=== PATIENT | female | born 1970 | race Caucasian/White ===

== ENCOUNTER 2016-06-30 21:11 | Emergency (ER) | payer OTHER ==
[~2016-06-30] VITALS: Ht 167.6 cm; Wt 127.0 kg
[~2016-06-30 21:11] MED LIST: AUGMENTIN 875-1 EACH PO; BENTYL20 M1 PO; DILAUDID2 M1 PO; GUAIFENESIN-COD10 ML PO; LEVAQUIN500 MG PO; LEVSIN0.125 M1 SL; METFORMIN HCL850 M1 PO; METOPROLOL SUCC50 M2 PO; NORCO 5-325 TA1 EACH PO; PERCOCET 5-3251 EACH PO; PREDNISONE10 M2 PO; PROAIR HFA8.5 GM INH; PROMETHAZINE D473 ML PO; ROBITUSSIN W/CO10 ML PO; TESSALON PERLE100 M1 PO; VICODIN 5-3001 EACH PO; ZOFRAN ODT4 M1 SL; ZOFRAN4 M2 PO
[2016-06-30 21:22] VITALS: BP 188/100
--- NOTE | 2016-06-30 22:08 | ED GI/GU/ABDOMINAL COMPLAINT ---
History of Present Illness General Chief Complaint: General Adult Stated Complaint: PT SAYS SHE HAS DIVERTICULITIS LOTS OF PAIN Source: patient, family, old records Exam Limitations: no limitations Vital Signs & Intake/Output Vital Signs & Intake/Output Vital Signs Date Time Temp Pulse Resp B/P Pulse O2 O2 Flow FiO2 Ox Delivery Rate 07/01 0045 97.6 06/302 100.8 66 18 188/100 98 Room Air ED Intake and Output 07/01 0000 06/30 1200 Intake Total 1000 Output Total Balance 1000 Intake, IV 1000 Patient 280 lb Weight Allergies Coded Allergies: NO KNOWN ALLERGIES (11/29/15) Triage Note: PT STATES THAT SHE HAS HISTORY OF DIVERTICULITIS AND HAD A CT SCAN TODAY AT [facility], PT STATES THAT SHE SAW DR NAVA 06/23 ABOUT POSSIBLE SURGERY , PT HAS HAD CONSTANT PAIN LLQ FOR THE PAST 2 DAYS BUT PRIOR TO THAT IT WAS INTERMITTANT, DENIES N/V/D. Triage Nurses Notes Reviewed? yes ? n Is pt currently ? No Onset: Abrupt Duration: day(s): (2), constant, changing over time Timing: recent history Quality/Severity: cramping, fullness, moderate Severity Numbers: 8 Location: left lower quadrant Radiation: no radiation Activities at Onset: none Prior Abdominal Problems: similar symptoms (diverticulitis) No Modifying Factors: none Associated Symptoms: denies HPI: 45-year-old female status post hysterectomy presents to emergency room with recurrent bouts of diverticulitis for which she is being seen by a surgeon Dr. dewey presents emergency room for evaluation today after she has had persistent left lower quadrant abdominal pain for the past 2 days. She had an outpatient CAT scan performed today however does not know the results. She denies any fevers or chills however is noted to be febrile in triage. No nausea vomiting diarrhea no urinary symptoms no hematuria no back pain. The pain is nonradiating she states this feels similar to her diverticulitis. The patient states that she was and has been constipated recently and only had a small bowel movement this morning. She denies any change in her appetite no chest pain. (CASSY CURRIE,LESLYE) Reconcile Medications Hydromorphone HCl (Dilaudid) 2 MG TABLET 1 TAB PO 4XDP PRN PAIN Metformin HCl 850 MG TABLET 1 TAB PO BID DM (Reported) Metoprolol Succinate 50 MG TAB.ER.24H 1 TAB PO DAILY HTN (Reported) Ondansetron (Zofran Odt) 4 MG TAB.RAPDIS 1 TAB SL TID PRN NAUSEA Oxycodone HCl/Acetaminophen (Percocet 5-325 MG Tablet) 5 MG-325 MG TABLET 1 TAB PO BID PRN pain (AYLA QUINTANA,BREANA) Past History Travel History Traveled to [place] past 21 day No Medical History Any Pertinent Medical History? 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 No (LESLYE RIGGS) Review of Systems Review of Systems Constitutional: Reports: see HPI. All Other Systems: Reviewed and Negative Comments Review of systems: See HPI, All other systems negative. Constitutional, no chills no fever, no malaise HEENT: No visual changes no sore throat no congestion Cardiovascular: No chest pain , no palpitation Skin, no rashes, no change in skin Respiratory: No dyspnea no cough no sputum no hemoptysis GI: No nausea no vomiting, no diarrhea, no bloating/constipation : No dysuria No hematuria, no frequency, no discharge Muscle skeletal: No joint pain, no joint swelling, no back pain, no neck pain, Neurologic: No numbness no headache Psych: No stress Heme/endocrine: No bruising no bleeding Immunology: No lymphadenopathy (LESLYE RIGGS) Physical Exam Physical Exam General Appearance: well developed/nourished, alert, awake Gastrointestinal: normal bowel sounds, soft, non-tender Comments: Well-developed well-nourished person in no acute distress HEENT: Normal EENT exam; PERRL, EOMI, HEAD is atraumatic. moist mucous membranes. Neck: Supple, normal range of motion Back: Nontender, no CVA tenderness. Full range of motion Cardiovascular: Regular rate and rhythms no murmurs rubs or gallops Respiratory: Chest nontender.There were no bony deformities, no asymmetry. No respiratory distress. Patient speaking in full complete sentences. Breath sounds clear to auscultation bilaterally: NO W/R/R Abdomen: Soft, nontender - no rlq tenderness, nondistended, no appreciable organomegaly. Normal bowel sounds. No rebound/guarding, No appreciable enlargement of the abdominal aorta, No ascites. Extremity: No edema, full range of motion of extremities Neuro: Alert oriented x3, motor sensory normal, There were no obvious focal neurologic abnormalities. Skin: No appreciable rash on exposed skin, skin is warm and dry. Psych: Mood and affect is normal, memory and judgment is normal. Core Measures ACS in differential dx? No Severe Sepsis Present: No Septic Shock Present: No (CASSY CURRIE,LESLYE) Progress Differential Diagnosis: AAA, AMI, appendicitis, biliary colic, bowel obstruction , colon cancer, diverticulitis, gastritis, hepatitis, hernia, ischemic bowel, inflamm bowel dis, kidney stone, Dorothy-Misael tear, ovarian cyst, ovarian torsion, pancreatitis, PID/cervicitis, peptic ulcer, PUD/GERD, perforated viscous, SBO, UTI/pyelo Plan of Care: Orders Procedure Date/time Status Saline Lock 06/30 2212 Active BLOOD CULTURE 06/30 2212 Active URINALYSIS 06/30 2212 Complete LACTIC ACID 06/30 2212 Complete COMPREHENSIVE METABOLIC PANEL 06/30 2212 Complete CBC WITHOUT DIFFERENTIAL 06/30 2212 Complete Laboratory Tests 07/01/16 0113: Lactic Acid Cancelled 06/30/16 2228: Anion Gap 9, Estimated GFR > 60, BUN/Creatinine Ratio 20.0, Glucose 103 H, Lactic Acid 1.1, Calcium 9.5, Total Bilirubin 0.4, AST 19, ALT 41, Alkaline Phosphatase 76, Total Protein 6.5, Albumin 3.8, Globulin 2.7, Albumin/Globulin Ratio 1.4, CBC w Diff NO MAN DIFF REQ, RBC 4.81, MCV 89.4, MCH 30.3, RDW 14.6 H , MPV 8.4, Gran % 66.2, Lymphocytes % 24.8, Monocytes % 6.7, Eosinophils % 1.4, Basophils % 0.9, Absolute Granulocytes 6.7 H, Absolute Lymphocytes 2.5, Absolute Monocytes 0.7 H, Absolute Eosinophils 0.1, Absolute Basophils 0.1, PUBS MCHC 33.8 06/30/162214: Urine Color YEL, Urine Clarity HAZY H, Urine pH 6.5, Ur Specific [place] 1.020, Urine Protein NEG, Urine Ketones NEG, Urine Nitrite NEG, Urine Bilirubin NEG, Urine Urobilinogen 0.2, Ur Leukocyte Esterase NEG, Ur Microscopic SEDIMENT EXAMINED, Urine RBC 1-3, Ur Epithelial Cells FEW, Urine Hemoglobin TRACE-INTACT, Urine Glucose NEG Microbiology 06/30 2243 BLOOD: Blood Culture - RECD 06/30 2227 BLOOD: Blood Culture - RECD Labs ordered old records reviewed including the patient's CAT scan that she had performed as an outpatient today IMPRESSION: 1. Sigmoid diverticulosis with resolution of the perisigmoid inflammatory changes. 2. Interval development of possible left ovarian cyst. Recommend pelvic ultrasound for further evaluation. DICTATED BY: MERVAT HO MD DATE/TIME DICTATED:06/30/161415 MALTHOUSE LABORER:ALON DATE/TIME TRANSCRIBED:06/30/161415 CONFIDENTIAL, DO NOT COPY WITHOUT APPROPRIATE AUTHORIZATION. <Electronically signed in Other Vendor System> SIGNED BY: MERVAT HO MD 1451 Patient reports symptoms have improved with Dilaudid IV fluids nontoxic- appearing abdomen the abdomen remained soft nontender. CASE AND RESULTS D/W DR AGUILA Discussed the patient all her results including her CAT scan that she had performed as an outpatient today. Patient is refusing x-ray or repeat CAT scan at this time. I discussed with her Need for close follow-up with her general surgeon tomorrow rest bland diet clear liquids advised to return immediately if her symptoms persist, I AnswerED all her questions she feels comfortable and (CASSY CURRIE,LESLYE) Diagnostic Imaging: Viewed by Me: Ultrasound. Discussed w/RAD: Ultrasound. Radiology Impression: PATIENT: WILL PALUMBO PRESENT AGE: 45 PATIENT ACCOUNT NO: [id number] : 69 LOCATION: [facility] ORDERING PHYSICIAN: LESLYE CURRIE SERVICE DATE: 07/01/16 EXAM TYPE: US - US- TRANSVAGINAL EXAMINATIONS: ULTRASOUND PELVIC, COMPLETE AND DOPPLER INTERROGATION CLINICAL INFORMATION: Left lower quadrant pain. Status post hysterectomy. Follow -up abnormal exam. COMPARISON: Abdominal and pelvic CT from 06/30/2016. TECHNIQUE: Transabdominal and transvaginal imaging was performed. Transvaginal imaging was performed for further evaluation of the adnexa. Doppler interrogation spectral analysis was performed. FINDINGS: The patient is status post hysterectomy. The right ovary is not identified. The left measures 3.2 x 2.7 x 3.3 cm for a volume of 15.0 cc. This measurement includes an approximately 18 mm follicle. Normal arterial and venous blood flow is present on the left. There is no pelvic free fluid. IMPRESSION: Status post hysterectomy. No pelvic free fluid. Right ovary not identified. 18 mm left ovarian follicle. Otherwise, unremarkable left ovary. DICTATED BY: MARYANN SCHROEDER MD DATE/TIME DICTATED:07/01 MALTHOUSE LABORER:ALON DATE/TIME TRANSCRIBED:07/01/1633 CONFIDENTIAL, DO NOT COPY WITHOUT APPROPRIATE AUTHORIZATION. <Electronically signed in Other Vendor System> SIGNED BY: MARYANN SCHROEDER MD 07/01/1638 Initial ED EKG: none (LESLYE RIGGS) Departure Departure Time of Disposition: 52 Disposition: HOME OR SELF CARE Condition: Stable Clinical Impression Primary Impression: Ovarian cyst Secondary Impressions: Abdominal pain Referrals: DEBBIE QUINTANA,JARED PARNELL MD,MYL (PCP/Family) Additional Instructions: follow up with dr Dewey tomorrow as well as her overhead worker regarding the ovarian cyst. Slope diet clear liquids Tylenol or Motrin as needed for pain. Return anytime sooner if your pain redevelops he develop fever chills nausea vomiting or any other concerns. Departure Forms: Customer Survey General Discharge Information Prescriptions: Current Visit Scripts Oxycodone HCl/Acetaminophen (Percocet 5-325 MG Tablet) 1 TAB PO BID PRN pain #10 TAB (LESLYE RIGGS) PA/CLOCKMAKER Co-Sign Statement Statement: ED Attending supervision documentation- [] I saw and evaluated the patient. I have also reviewed all the pertinent lab results and diagnostic results. I agree with the findings and the plan of care as documented in the PA's/CLOCKMAKER's documentation. x I have reviewed the ED Record and agree with the PA's/CLOCKMAKER's documentation. [] Additions or exceptions (if any) to the PAs/CLOCKMAKER's note and plan are summarized below: [] (AYLA QUINTANA,BREANA)
[2016-06-30 22:39] LABS: ABSOLUTE BASOPHIL COUNT 0.1 /CUMM (0.0-0.2); ABSOLUTE EOSINOPHIL COUNT 0.1 /CUMM (0.0-0.7); ABSOLUTE GRANULOCYTE CT 6.7 /CUMM (1.4-6.5); ABSOLUTE LYMPH COUNT 2.5 /CUMM (1.2-3.4); ABSOLUTE MONOCYTE COUNT 0.7 /CUMM (0.10-0.60); BASOPHIL % 0.9 % (0.0-2.0); EOSINOPHIL % 1.4 % (0-5); GRANULOCYTE % 66.2 % (42.2-75.2); MEAN CORPUSCULAR HGB 30.3 PG (27.0-31.0); MEAN CORPUSCULAR HGB CONC 33.8 G/DL (33.0-37.0); MEAN CORPUSCULAR VOLUME 89.4 FL (81.0-99.0); MEAN PLATELET VOLUME 8.4 FL (7.4-10.4); PLATELET COUNT 206 /CUMM (130-400); RBC DISTRIBUTION WIDTH 14.6 % (11.5-14.5); RED BLOOD CELL CT 4.81 /CUMM (4.20-5.40); WHITE BLOOD CELL COUNT 10.1 /CUMM (4.8-10.8)
--- NOTE | 2016-07-01 00:39 | ULTRASOUND REPORT ---
EXAMINATIONS: ULTRASOUND PELVIC, COMPLETE AND DOPPLER INTERROGATION CLINICAL INFORMATION: Left lower quadrant pain. Status post hysterectomy. Follow-up abnormal exam. COMPARISON: Abdominal and pelvic CT from 06/30/2016. TECHNIQUE: Transabdominal and transvaginal imaging was performed. Transvaginal imaging was performed for further evaluation of the adnexa. Doppler interrogation spectral analysis was performed. FINDINGS: The patient is status post hysterectomy. The right ovary is not identified. The left measures 3.2 x 2.7 x 3.3 cm for a volume of 15.0 cc. This measurement includes an approximately 18 mm follicle. Normal arterial and venous blood flow is present on the left. There is no pelvic free fluid. IMPRESSION: Status post hysterectomy. No pelvic free fluid. Right ovary not identified. 18 mm left ovarian follicle. Otherwise, unremarkable left ovary.
[2016-07-01] MEDS ORDERED: PERCOCET 5-3251 EACH PO (00:53)
== END 2016-07-01 01:06 ==
LOC: ERH 21:11
PROVIDERS: Physician Assistant Medical
DX: N83.202 Unspecified ovarian cyst, left side (principal)
CPT/HCPCS: 81001; 87040; 96361; 96374; 96375; J1885; J2405

== ENCOUNTER 2017-09-02 15:06 | Emergency (ER) | payer OTHER ==
[~2017-09-02] VITALS: Ht 167.6 cm; Wt 127.0 kg
--- NOTE | 2017-09-02 15:45 | ED INFLUENZA/URI COMPLAINT ---
History of Present Illness General Chief Complaint: Upper Respiratory Sx/Fever Stated Complaint: UPPER RESPITORY SYMPTOMS Source: patient, family Exam Limitations: no limitations Vital Signs & Intake/Output Vital Signs & Intake/Output Vital Signs Date Time Temp Pulse Resp B/P B/P Pulse O2 O2 Flow FiO2 Mean Ox Delivery Rate 09/02 1605 98 Room Air 09/02 1519 99.0 74 22 154/88 98 Room Air Allergies Coded Allergies: NO KNOWN ALLERGIES (11/29/15) Reconcile Medications Hydromorphone HCl (Dilaudid) 2 MG TABLET 1 TAB PO 4XDP PRN PAIN Metformin HCl 850 MG TABLET 1 TAB PO BID DM (Reported) Metoprolol Succinate 50 MG TAB.ER.24H 1 TAB PO DAILY HTN (Reported) Ondansetron (Zofran Odt) 4 MG TAB.RAPDIS 1 TAB SL TID PRN NAUSEA Oxycodone HCl/Acetaminophen (Percocet 5-325 MG Tablet) 5 MG-325 MG TABLET 1 TAB PO BID PRN pain Triage Note: 47F WITH FACIAL AND CHEST CONGESTION X1 MONTH, WAS ON ANTIBIOTICS AND FEELING WORSE NOW. FEELING TIGHTNESS AND HAS CLEAR PRODUCTIVE COUGH AND SOB. TAKING SUDAFED, TYLENOL AND NYQUIL WITH MINIMAL RELIEF. LAST DOSE TYLENOL 2 HOURS AGO. TEMP 99.0. ALSO HAS FEVER BLISTERS AND TAKING ACYCLOVIR. DENIES PALPITATIONS OR CP. -N/V/D OR ABD PAIN. +RHINORRHEA AND FACIAL PRESSURE. SORE THROAT IMPROVING. +SMOKER Triage Nurses Notes Reviewed? yes HPI: 47F no significant PMH with 3 weeks of lingering cough and dyspnea. Had a "cold " 3 weeks ago, and she has had a dry cough since with dyspnea on exertion. She also reports sinus pressure, chest congestion, and malaise. She denies fever, chills, n/v, chest pain, sore throat, abdominal pain, diarrhea, dysuria. She is an active PPD smoker. No sick contacts or recent travel. No meningeal signs. Past History Travel History Traveled to [place] past 21 day No Medical History Any Pertinent Medical History? 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 No Review of Systems Review of Systems Constitutional: Reports: no symptoms. EENTM: Reports: no symptoms. Respiratory: Reports: no symptoms. Cardiovascular: Reports: no symptoms. GI: Reports: no symptoms. Genitourinary: Reports: no symptoms. Musculoskeletal: Reports: no symptoms. Skin: Reports: no symptoms. Neurological/Psychological: Reports: no symptoms. Hematologic/Endocrine: Reports: no symptoms. Immunologic/Allergic: Reports: no symptoms. All Other Systems: Reviewed and Negative Physical Exam Physical Exam General Appearance: well developed/nourished, no apparent distress Head: atraumatic, normal appearance Eyes: Bilateral: normal appearance. Ears, Nose, Throat: normal ENT inspection, moist mucous membrane, hearing grossly normal, nasal congestion, tender frontal sinuses, ear canal erythema L>R Neck: normal inspection, supple, full range of motion Respiratory: chest non-tender, no respiratory distress, wheezing Cardiovascular: regular rate/rhythm Gastrointestinal: soft, non-tender Back: normal inspection, normal range of motion Extremities: normal inspection, no edema Neurologic/Psych: awake, alert, oriented x 3, normal mood/affect Skin: intact, normal color, warm/dry Core Measures Sepsis Present: No Sepsis Focused Exam Completed? No Progress Differential Diagnosis: influenza, meningitis, neutropenia, otitis, pneumonia, pharyngitis, sinusitis Plan of Care: Orders Procedure Date/time Status RAPID VIRAL INFLUENZA A 09/02 1510 Complete Microbiology 09/02 151 NASOPHARYN: Influenza Virus A & B Rapid Smear - COMP Diagnostic Imaging: Viewed by Me: Radiology Read. Discussed w/RAD: Radiology Read. Radiology Impression: PATIENT: WILL PALUMBO PRESENT AGE: 47 PATIENT ACCOUNT NO: [id number] : 69 LOCATION: [facility] ORDERING PHYSICIAN: Maine Paredes MD SERVICE DATE: 09/02/17 EXAM TYPE: RAD - XRY-CHEST XRAY, TWO VIEWS EXAMINATION: XR CHEST CLINICAL INFORMATION: Rule out pneumonia COMPARISON: 2016 TECHNIQUE: 2 views of the chest were obtained. FINDINGS: Crowding of lung markings at the bases probably due to poor inspiration, No significant abnormality is noted involving the heart, lungs, mediastinum, bony thorax or soft tissues. IMPRESSION: Limited study, poor inspiration, no acute infiltrates. DICTATED BY: Silvia Teran MD DATE/TIME DICTATED:09/02/171551 CHIP LOFT WORKER:ALON DATE/TIME TRANSCRIBED:1551 Initial ED EKG: none Departure Departure Disposition: HOME OR SELF CARE Condition: Stable Clinical Impression Primary Impression: COPD exacerbation Secondary Impressions: Acute bronchitis, Acute sinusitis Referrals: Catina QUINTANA,Myl (PCP/Family) Additional Instructions: Follow up with your primary care provider. When you feel better you should have spirometry testing. You really should stop smoking. You can use a nicotine patch and gum to help you. If any new or worsening symptoms, return to ER. Departure Forms: Customer Survey General Discharge Information Prescriptions: Current Visit Scripts Prednisone 1 TAB PO BID #10 TAB Amoxicillin/Potassium Clav (Augmentin 875-125 Tablet) 1 TAB PO BID #14 TAB Albuterol Sulfate (Ventolin Hfa) 2 PUF INH Q4-6 PRN PRN COPD #1 INHAL
--- NOTE | 2017-09-02 15:57 | RADIOLOGY REPORT ---
EXAMINATION: XR CHEST CLINICAL INFORMATION: Rule out pneumonia COMPARISON: 2016 TECHNIQUE: 2 views of the chest were obtained. FINDINGS: Crowding of lung markings at the bases probably due to poor inspiration, No significant abnormality is noted involving the heart, lungs, mediastinum, bony thorax or soft tissues. IMPRESSION: Limited study, poor inspiration, no acute infiltrates.
[2017-09-02] MEDS ORDERED: PREDNISONE20 M1 PO (16:12)
[2017-09-02] MEDS ORDERED: AUGMENTIN 875-1 EACH PO (16:12)
[2017-09-02] MEDS ORDERED: VENTOLIN HFA18 GM INH (16:12)
[2017-09-02 16:33] VITALS: BP 148/88
== END 2017-09-02 16:33 ==
LOC: ERH 15:06
DX: J44.0 Chronic obstructive pulmonary disease with (acute) lower respiratory infection (principal); J32.9 Chronic sinusitis, unspecified; F17.210 Nicotine dependence, cigarettes, uncomplicated
CPT/HCPCS: 71046; 87804; 87804-59